=== PATIENT | male | born 2000 | race Caucasian/White ===

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

== ENCOUNTER 2019-12-06 21:12 | Emergency (ER) | payer OTHER ==
[~2019-12-06] VITALS: Ht 185.4 cm; Wt 60.0 kg
[2019-12-06 21:19] VITALS: TEMP 99.8
[2019-12-06 22:28] LABS: BASO # 0.1 (0.0-0.2); BASO % 0.8 % (0.0-2.0); EOS # 0.1 (0.0-0.7); EOS % 0.9 % (0-4.0); GRAN # 6.7 (1.4-6.5); GRAN % 65.7 % (42.2-75.2); HEMOGLOBIN 14.9 g/dl (13.5-18.0); LYMPH # 2.4 (1.2-3.4); LYMPH % 23.2 % (20.0-51.0); MEAN CELL VOLUME 87 fl (80.0-100.0); MEAN CORPUSCULAR HEMOGLOBIN 30 pg (27.0-31.0); MEAN CORPUSCULAR HGB CONC 34 g/dl (33.0-37.0); MEAN PLATELET VOLUME 11.1 fl (7.4-10.4); MONO # 0.9 (0.1-0.6); MONO % 9.1 % (1.7-9.3); PLATELET COUNT 257 K/mm3 (130-400); RED BLOOD COUNT 5.05 M/mm3 (4.20-5.60); REDCELL DISTRIBUTION WIDTH-CV 11.9 % (11.5-14.5)
[2019-12-06 22:41] LABS: ALANINE AMINOTRANSFERASE 15 U/L (4-49); ALBUMIN 4.8 gm/dL (3.5-5.0); ALKALINE PHOSPHATASE 58 U/L (50-136); ANION GAP 10 mmol/L (7-16); AST,SGOT 27 U/L (15-37); BILIRUBIN,TOTAL 0.9 mg/dL (0.0-1.0); BLOOD UREA NITROGEN 16 mg/dL (9-20); CALCIUM 9.8 mg/dL (8.4-10.2); CARBON DIOXIDE 26 mmol/L (22-30); CHLORIDE 102 mmol/L (98-107); CREATININE, serum 0.79 (0.66-1.25); GLUCOSE 98 mg/dL (74-106); LIPASE 54 U/L (23-300); SODIUM 138 mmol/L (137-145)
[2019-12-06 22:43] LABS: C-REACTIVE PROTEIN < 0.5 mg/dL (0.0-0.9)
[2019-12-06 23:14] LABS: COLLECTION METHOD CLEAN CATCH
[2019-12-06 23:20] LABS: PH 6 (5-8); SQUAMOUS EPITHELIAL None Seen /hpf; URINE APPEARANCE Clear; URINE BACTERIA None Seen /hpf; URINE BILIRUBIN Negative (NEGATIVE); URINE BLOOD Negative (NEGATIVE); URINE COLOR Yellow; URINE GLUCOSE Negative (NEGATIVE); URINE KETONE Negative (NEGATIVE); URINE LEUKOCYTE ESTERASE Negative (NEGATIVE); URINE NITRATE Negative (NEGATIVE); URINE PROTEIN(semi-quant) Negative (NEGATIVE); URINE RBC None Seen /hpf; URINE UROBILINOGEN Negative (NEGATIVE)
[2019-12-06] MEDS ORDERED: ZOFRAN 4MG T4 MG/TAB PO (23:24)
[2019-12-06] MEDS ORDERED: NORCO 325 MG-51 TAB PO (23:24)
[2019-12-07] VITALS: BP 123/87; PULSE 78
== END 2019-12-07 | disposition home or self-care (01) ==
LOC: COL.ER 21:12
PROVIDERS: Emergency Medicine
DX: K80.50 Calculus of bile duct without cholangitis or cholecystitis without obstruction (principal)
CPT/HCPCS: J2270; J2405; J7030

== ENCOUNTER 2019-12-16 10:30 | Day surgery (SDC) | payer OTHER ==
[~2019-12-16] VITALS: Ht 185.4 cm; Wt 63.5 kg
[~2019-12-16 10:30] MED LIST changes: +NORCO 325 MG-51 TAB PO; +ZOFRAN 4MG T4 MG/TAB PO
[2019-12-16 10:54] VITALS: BP 129/80; PULSE 91; TEMP 98.8
[2019-12-16] MEDS ORDERED: ZYRTEC 10MG10 MG PO (10:59)
[2019-12-16] MEDS ORDERED: NORCO 325 MG-51 TAB PO (13:10)
[2019-12-16 13:55] VITALS: BP 135/86; PULSE 101; TEMP 99.2
--- NOTE | 2019-12-16 13:55 | NUR ---
The patient arrived back to [facility] from the recovery room at this time. The patient appears alert and oriented and reports minimal pain at this time. The patient has three bandaids to his abdomen that appears clean, dry and intact. The patient has some ice chips form PACU and appears to be tolerating them well. The patient agrees to try some water and applesauce. Call light is within reach. The patient denies any further needs at this time. Will continue to monitor the patient.
[2019-12-16 14:09] VITALS: BP 142/82; PULSE 100
--- NOTE | 2019-12-16 14:09 | NUR ---
The patient appears to be tolerating the applesauce and water well. The nurse instructed the patient that after he finishes his applesauce he can have an oral pain pill to continue his pain control. Will continue to monitor the patient.
[2019-12-16 14:18] VITALS: TEMP 99.2
[2019-12-16 14:25] VITALS: BP 143/74; PULSE 103
--- NOTE | 2019-12-16 14:25 | NUR ---
The patient has finished his applesauce and was given a PRN dose of [place] one tab at this time. Vital signs appear stable. The patient reports feeling the urge to void and ambulated to the bathroom with the stand by assistance of one nurse and appeared to tolerate the activity well. The patient voided without difficulty. The patient voices a desire to be discharged home. The patient's brother was called to come pick him up.
[2019-12-16 14:40] VITALS: BP 134/75; PULSE 105
--- NOTE | 2019-12-16 14:40 | NUR ---
Discharge instructions were reviewed with the patient at this time. He verbalized understanding and has no questions for the nurse at this time. The patient's IV to his right hand was removed and a pressure dressing was applied to the site. The nurse instructed the patient to get dressed and notify the staff when he is ready to be escorted out.
--- NOTE | 2019-12-16 14:50 | NUR ---
The patient was escorted out via wheelchair to a private vehicle by DELILAH Mckeon. The patient's belongings and discharge paperwork were sent with him. The patient does report some increased nausea after getting dressed and was given an alcohol wipe to smell and an emesis bag in case of vomiting. The patient's brother is present to drive him home.
== END 2019-12-16 14:50 | disposition home or self-care (01) ==
LOC: SDCO 10:30
DX: K81.1 Chronic cholecystitis (principal); J45.909 Unspecified asthma, uncomplicated; Z20.828 Contact with and (suspected) exposure to other viral communicable diseases; Z88.5 Allergy status to narcotic agent; Z79.899 Other long term (current) drug therapy
CPT/HCPCS: J0690; J1100; J1170; J1885; J2405; J2704; J7120

== ENCOUNTER 2020-08-11 18:21 | Emergency (ER) | payer SELFPAY ==
[~2020-08-11] VITALS: Ht 185.4 cm; Wt 61.4 kg
[~2020-08-11 18:21] MED LIST changes: +ZYRTEC 10MG10 MG PO
[2020-08-11 18:34] VITALS: TEMP 98.3
[2020-08-11] MEDS ORDERED: FLEXERIL 1010 MG/TAB PO (19:52)
[2020-08-11 19:56] VITALS: BP 154/93; PULSE 77
== END 2020-08-11 19:56 | disposition home or self-care (01) ==
LOC: COL.ER 18:21
DX: S09.90XA Unspecified injury of head, initial encounter (principal); S16.1XXA Strain of muscle, fascia and tendon at neck level, initial encounter; Z88.1 Allergy status to other antibiotic agents; V43.52XA Car driver injured in collision with other type car in traffic accident, initial encounter

== ENCOUNTER 2021-02-27 09:42 | Emergency (ER) | payer OTHER ==
[~2021-02-27] VITALS: Ht 185.4 cm; Wt 61.4 kg
[~2021-02-27 09:42] MED LIST changes: +FLEXERIL 1010 MG/TAB PO
[2021-02-27 09:47] VITALS: TEMP 97.5
[2021-02-27 11:02] VITALS: BP 142/84; PULSE 80
== END 2021-02-27 11:02 | disposition home or self-care (01) ==
LOC: COL.ER 09:42
DX: S01.81XA Laceration without foreign body of other part of head, initial encounter (principal); Z23 Encounter for immunization; W22.8XXA Striking against or struck by other objects, initial encounter; Y93.E2 Activity, laundry; Y92.009 Unspecified place in unspecified non-institutional (private) residence as the place of occurrence of the external cause